=== PATIENT | male | born 1960 | race Caucasian/White ===

== ENCOUNTER 2016-12-19 13:17 | Inpatient (IN) | payer MEDICARE ==
[2016-12-19] VITALS (8 sets, daily range): BP systolic 97–138; BP diastolic 42–60
[~2016-12-19] VITALS: Ht 175.3 cm; Wt 136.0 kg
[~2016-12-19 13:17] MED LIST: ACTOS15 MG OR; AMARYL4 MG OR; AMARYL4 MG PO; AMPICILLIN500 MG OR; ASPIRIN325 MG OR; ATENOLOL50 MG OR; B COMPLE2 PO; B COMPLEX OR; BACTRIM DS1 TAB OR; BACTRIM DS1 TAB PO; BUMETANIDE1 MG PO; CEPHALEXIN500 MG PO; CHELATED K99 MG PO; CIPRO XR500 MG PO; CIPRO500 MG OR; CIPRO500 MG PO; CIPROFLOXACN500 MG PO; CLINDAMYCIN300 M1 PO; COUMADIN7.5 MG PO; DIGOX0.25 MG PO; DILAUDID2 MG PO; DOXAZOSIN8 MG PO; DOXYCYC MONO100 M1 PO; ENALAPRIL10 MG PO; ENALAPRIL2.5 MG PO; FISH OIL1000 MG OR; FISH OIL1000 MG PO; FISH OIL1200 M1 OR; FLOMAX0.4 M1 OR; FLOMAX0.4 M1 PO; FUROSEMIDE40 MG PO; GLIMEPIRIDE2 MG PO; GLUCOPHAGE500 MG PO; GREEN OR; HYDROCHLOROT12.5 M1 PO; HYDROCHLOROT12.5 MG OR; HYDROCHLOROT12.5 MG PO; HYDROCHLOROT25 MG OR; HYDROCO/APAP1 TA9 PO; IBUPROFEN200 MG PO; KEFLEX500 M1 PO; KEFLEX500 MG PO; KLOR-CON 1010 ME1 PO; KLOR-CON M2020 MEQ PO; LANTUS100 MG/ML SC; LASIX 40 MG40 MG/TAB PO; LEVAQUIN750 MG PO; LEVEMIR FL100 UNIT/M SC; LEVEMIR FLEXPEN SC; LEVEMIR1000 UNITS SC; LEVOTHYROXIN50 MCG PO; LEVOTHYROXIN75 MCG PO; LISINOP/HCTZ1 TA2 OR; LISINOP/HCTZ1 TAB PO; LISINOPRIL10 MG PO; LOPRESSOR 550 MG/TAB PO; LORTAB 10-325 M1 TAB PO; METFORMIN1000 MG OR; METFORMIN500 MG PO; METOPROLOL TAR100 MG PO; NOVOLOG FLEXPEN SC; NOVOLOG MIX100 U/ML SC; NOVOLOG100 IU/1 M SC; NYSTATIN TOP; PHILLIPS COLON HEALT PO; POTASSI XX; POTASSIUM CHLO10 MEQ PO; POTASSIUM99 MG OR; POTASSIUM99 MG PO; ROBITUSSIN AC10 ML PO; SAW PALMETTO160 MG OR; SAW PALMETTO450 MG OR; SEPTRA DS1 TAB OR; SIMVASTATIN10 MG PO; SIMVASTATIN20 MG PO; SYNTHROID OR; TAM75CAP OR; TAMSULOSIN0.4 MG PO; TENORMIN OR; TORSEMIDE20 M1 PO; ULTRAM50 MG OR; UNKNOWN MED; VICTOZA18 MG/3 ML SC; Vitamin B12 PO; WARFARIN3 MG PO; WARFARIN4 MG PO; ZESTRIL/PRINIV2.5 MG PO; ZOCOR20 MG OR; ZPAK PO; [UNRECOGNIZED DRUG - OTHER] OR; [UNRECOGNIZED DRUG - OTHER] PO
[2016-12-19 15:19] LABS: URINE BILIRUBIN - DIPSTICK NEGATIVE (NEGATIVE); URINE BLOOD DIPSTICK LARGE (NEGATIVE); URINE CLARITY CLEAR; URINE COLOR YELLOW; URINE GLUCOSE - DIPSTICK 100 mg/dL (NEGATIVE); URINE KETONE NEGATIVE (NEGATIVE); URINE LEUK ESTERASE NEGATIVE (NEGATIVE); URINE NITRITE - DIPSTICK NEGATIVE (Negative); URINE PROTEIN - DIPSTICK NEGATIVE (NEG-TRACE); URINE SPECIFIC GRAVITY 1.015; URINE UROBILINOGEN - DIPSTICK 0.2 E.U./dL (0.2)
[2016-12-19 15:24] LABS: HEMATOCRIT 38.1 % (39.0-50.0); HEMOGLOBIN 10.6 g/dl (14.0-18.0); IMMATURE GRANULOCYTES 0.8 % (0.0-1.0); MEAN CELL VOLUME 94.1 fL CALC (80.0-100.0); MEAN CORPUSCULAR HGB 26.2 pG CALC (26.0-32.0); MEAN CORPUSCULAR HGB CONC 27.8 g/L CALC (32.0-36.0); NEUT# 7.16 thou/uL (1.82-7.42); RED BLOOD COUNT 4.05 mill/uL (4.70-6.10); RED CELL DISTRI WIDTH 16.5 % (11.5-15.5)
[2016-12-19 15:25] LABS: URINE RBC TNTC RBC/hpf (0-5); URINE SQUAMOUS EPITHELIAL CELL FEW EPI/hpf (0-FEW)
[2016-12-19 15:35] LABS: ALBUMIN 3.6 g/dL (3.2-5.0); ALKALINE PHOSPHATASE 118 u/l (38-126); BILIRUBIN, TOTAL 0.8 mg/dL (0.0-1.4); BUN 47 mg/dL (9-20); BUN/CREATININE RATIO 28 (12-20 (CALC)); CALCIUM 8.7 mg/dL (8.4-10.2); CHLORIDE 90 mmol/l (95-108); CREATININE 1.7 mg/dL (0.7-1.3); GFR 42 ML/MIN (>=60 (CALC)); GFR FOR AFR.AMER. 50 ML/MIN (>=60 (CALC)); GLUCOSE 241 mg/dL (75-110); POTASSIUM 4.5 mmol/l (3.5-5.1); SGOT/AST 50 u/l (17-59); SGPT/ALT 75 u/l (21-72); SODIUM 141 mmol/l (137-146); TOTAL PROTEIN 8.2 g/dL (6.3-8.2)
[2016-12-19 15:41] LABS: ANION GAP 13 (6-22 (CALC))
[2016-12-19 15:45] LABS: MYOGLOBIN 52 ng/mL (0 - 121)
[2016-12-19 15:50] LABS: CARBON DIOXIDE 43 mmol/l (22-30)
[2016-12-19] MEDS ORDERED: IMIPRAM HCL25 M1 PO (16:18)
[2016-12-20] VITALS (16 sets, daily range): BP systolic 96–147; BP diastolic 37–75
[2016-12-20 05:33] LABS: HEMATOCRIT 35.8 % (39.0-50.0); HEMOGLOBIN 10.2 g/dl (14.0-18.0); IMMATURE GRANULOCYTES 0.9 % (0.0-1.0); MEAN CORPUSCULAR HGB 26.2 pG CALC (26.0-32.0); MEAN CORPUSCULAR HGB CONC 28.5 g/L CALC (32.0-36.0); NEUT# 6.77 thou/uL (1.82-7.42); RED BLOOD COUNT 3.89 mill/uL (4.70-6.10); RED CELL DISTRI WIDTH 16.3 % (11.5-15.5)
[2016-12-20 05:49] LABS: ALBUMIN 3.1 g/dL (3.2-5.0); ALKALINE PHOSPHATASE 106 u/l (38-126); BILIRUBIN, TOTAL 0.5 mg/dL (0.0-1.4); BUN 48 mg/dL (9-20); BUN/CREATININE RATIO 36 (12-20 (CALC)); CALCIUM 8.5 mg/dL (8.4-10.2); CALCULATED LDLCHOLESTEROL 70 mg/dL (62-129 (CALC)); CHLORIDE 92 mmol/l (95-108); CREATININE 1.3 mg/dL (0.7-1.3); GFR 57 ML/MIN (>=60 (CALC)); GFR FOR AFR.AMER. > 60 ML/MIN (>=60 (CALC)); GLUCOSE 243 mg/dL (75-110); HDL CHOLESTEROL 38 mg/dL (>=40); POTASSIUM 4.7 mmol/l (3.5-5.1); SGOT/AST 26 u/l (17-59); SGPT/ALT 61 u/l (21-72); SODIUM 144 mmol/l (137-146); TOTAL CHOLESTEROL 131 mg/dl (0-199); TOTAL PROTEIN 7.2 g/dL (6.3-8.2); TOTAL TRIGLYCERIDES 115 mg/dl (30-149); VLDL CHOLESTROL 23 mg/dl (8-62 (CALC))
[2016-12-20 05:55] LABS: ANION GAP 14 (6-22 (CALC))
[2016-12-20 06:47] LABS: CARBON DIOXIDE 43 mmol/l (22-30)
[2016-12-21] VITALS (10 sets, daily range): BP systolic 126–178; BP diastolic 53–84
[2016-12-21 06:55] LABS: ALKALINE PHOSPHATASE 94 u/l (38-126); BILIRUBIN, TOTAL 0.5 mg/dL (0.0-1.4); BUN 47 mg/dL (9-20); BUN/CREATININE RATIO 40 (12-20 (CALC)); CALCIUM 8.3 mg/dL (8.4-10.2); CHLORIDE 94 mmol/l (95-108); CREATININE 1.2 mg/dL (0.7-1.3); GFR > 60 ML/MIN (>=60 (CALC)); GFR FOR AFR.AMER. > 60 ML/MIN (>=60 (CALC)); GLUCOSE 136 mg/dL (75-110); POTASSIUM 4.2 mmol/l (3.5-5.1); SGOT/AST 21 u/l (17-59); SGPT/ALT 49 u/l (21-72); SODIUM 143 mmol/l (137-146)
[2016-12-21 07:01] LABS: ANION GAP 11 (6-22 (CALC))
[2016-12-21 07:09] LABS: CARBON DIOXIDE 42 mmol/l (22-30)
[2016-12-21 07:09] LABS: HEMATOCRIT 36.8 % (39.0-50.0); HEMOGLOBIN 10.4 g/dl (14.0-18.0); IMMATURE GRANULOCYTES 0.4 % (0.0-1.0); MEAN CELL VOLUME 93.2 fL CALC (80.0-100.0); MEAN CORPUSCULAR HGB 26.3 pG CALC (26.0-32.0); MEAN CORPUSCULAR HGB CONC 28.3 g/L CALC (32.0-36.0); NEUT# 9.39 thou/uL (1.82-7.42); RED BLOOD COUNT 3.95 mill/uL (4.70-6.10); RED CELL DISTRI WIDTH 16.5 % (11.5-15.5)
== END 2016-12-21 10:00 | disposition home or self-care (01) | DRG 189 ==
LOC: ENPENDDIS → ED 13:17 → ED-I 16:24 → ED 16:27 → ICU 16:28
PROVIDERS: Emergency Medicine; ADMIT Internal Medicine Geriatric Medicine; ATTEND Internal Medicine Geriatric Medicine
PROC: 5A0935Z Assistance with Respiratory Ventilation, Less than 24 Consecutive Hours (ICD-10-PCS; principal; 2016-12-19)
DX: J96.01 Acute respiratory failure with hypoxia (principal); I11.0 Hypertensive heart disease with heart failure; I50.22 Chronic systolic (congestive) heart failure; Z99.81 Dependence on supplemental oxygen; Z68.44 Body mass index [BMI] 60.0-69.9, adult; J96.02 Acute respiratory failure with hypercapnia; E66.01 Morbid (severe) obesity due to excess calories; E03.9 Hypothyroidism, unspecified; I25.10 Atherosclerotic heart disease of native coronary artery without angina pectoris; M19.90 Unspecified osteoarthritis, unspecified site; N13.9 Obstructive and reflux uropathy, unspecified; E11.9 Type 2 diabetes mellitus without complications; G47.30 Sleep apnea, unspecified; Z91.19 Patient's noncompliance with other medical treatment and regimen
CPT/HCPCS: J1650

== ENCOUNTER 2016-12-23 11:10 | Emergency (ER) | payer MEDICARE ==
[~2016-12-23] VITALS: Ht 175.3 cm; Wt 136.4 kg
[~2016-12-23 11:10] MED LIST changes: +IMIPRAM HCL25 M1 PO
[2016-12-23 12:31] LABS: HEMATOCRIT 36.4 % (39.0-50.0); HEMOGLOBIN 10.2 g/dl (14.0-18.0); IMMATURE GRANULOCYTES 0.8 % (0.0-1.0); MEAN CELL VOLUME 94.5 fL CALC (80.0-100.0); MEAN CORPUSCULAR HGB 26.5 pG CALC (26.0-32.0); NEUT# 7.99 thou/uL (1.82-7.42); RED BLOOD COUNT 3.85 mill/uL (4.70-6.10); RED CELL DISTRI WIDTH 16.3 % (11.5-15.5)
[2016-12-23 12:41] LABS: ALBUMIN 3.5 g/dL (3.2-5.0); ALKALINE PHOSPHATASE 89 u/l (38-126); BILIRUBIN, TOTAL 0.7 mg/dL (0.0-1.4); BUN 41 mg/dL (9-20); BUN/CREATININE RATIO 37 (12-20 (CALC)); CALCIUM 8.4 mg/dL (8.4-10.2); CHLORIDE 90 mmol/l (95-108); CREATININE 1.1 mg/dL (0.7-1.3); GFR > 60 ML/MIN (>=60 (CALC)); GFR FOR AFR.AMER. > 60 ML/MIN (>=60 (CALC)); GLUCOSE 342 mg/dL (75-110); MAGNESIUM 2.4 mg/dL (1.6-2.3); SGOT/AST 62 u/l (17-59); SGPT/ALT 61 u/l (21-72); SODIUM 140 mmol/l (137-146); TOTAL PROTEIN 7.9 g/dL (6.3-8.2)
[2016-12-23 12:52] LABS: ANION GAP 10 (6-22 (CALC)); POTASSIUM 5.4 mmol/l (3.5-5.1)
[2016-12-23 12:53] LABS: MYOGLOBIN 44 ng/mL (0 - 121)
[2016-12-23 12:54] LABS: CARBON DIOXIDE 45 mmol/l (22-30)
[2016-12-23 13:28] VITALS: BP 135/76
== END 2016-12-23 13:35 | disposition home or self-care (01) ==
LOC: ED 11:10
PROVIDERS: Emergency Medicine
DX: F41.9 Anxiety disorder, unspecified (principal); I10 Essential (primary) hypertension; I48.91 Unspecified atrial fibrillation; R42 Dizziness and giddiness

== ENCOUNTER 2016-12-25 16:31 | Emergency (ER) | payer MEDICARE ==
[~2016-12-25] VITALS: Ht 175.3 cm; Wt 90.0 kg
[2016-12-25 17:14] VITALS: BP 145/72
== END 2016-12-25 17:40 | disposition home or self-care (01) ==
LOC: ED 16:31
DX: F32.9 Major depressive disorder, single episode, unspecified (principal)

== ENCOUNTER 2016-12-28 14:13 | Emergency (ER) | payer MEDICARE ==
[~2016-12-28] VITALS: Ht 175.3 cm; Wt 181.8 kg
[2016-12-28 15:42] LABS: HEMATOCRIT 36.7 % (39.0-50.0); HEMOGLOBIN 10.4 g/dl (14.0-18.0); IMMATURE GRANULOCYTES 0.5 % (0.0-1.0); MEAN CELL VOLUME 92.4 fL CALC (80.0-100.0); MEAN CORPUSCULAR HGB 26.2 pG CALC (26.0-32.0); MEAN CORPUSCULAR HGB CONC 28.3 g/L CALC (32.0-36.0); NEUT# 7.63 thou/uL (1.82-7.42); RED BLOOD COUNT 3.97 mill/uL (4.70-6.10); RED CELL DISTRI WIDTH 16.2 % (11.5-15.5)
[2016-12-28 15:56] LABS: PROTHROMBIN TIME 11.3 SECONDS (9.0-12.5)
[2016-12-28 15:59] LABS: ALBUMIN 3.7 g/dL (3.2-5.0); ALKALINE PHOSPHATASE 95 u/l (38-126); BILIRUBIN, TOTAL 0.6 mg/dL (0.0-1.4); BUN 37 mg/dL (9-20); BUN/CREATININE RATIO 30 (12-20 (CALC)); CALCIUM 8.9 mg/dL (8.4-10.2); CHLORIDE 86 mmol/l (95-108); CREATININE 1.2 mg/dL (0.7-1.3); GFR > 60 ML/MIN (>=60 (CALC)); GFR FOR AFR.AMER. > 60 ML/MIN (>=60 (CALC)); GLUCOSE 199 mg/dL (75-110); POTASSIUM 4.3 mmol/l (3.5-5.1); SGOT/AST 22 u/l (17-59); SGPT/ALT 56 u/l (21-72); SODIUM 140 mmol/l (137-146); TOTAL PROTEIN 7.9 g/dL (6.3-8.2)
[2016-12-28 16:12] LABS: MYOGLOBIN 54 ng/mL (0 - 121)
[2016-12-28 16:46] LABS: ANION GAP 11 (6-22 (CALC)); CARBON DIOXIDE 47 mmol/l (22-30); TSH, 3RD GENERATION 2.13 uIU/mL (0.47 - 4.68)
[2016-12-28 20:45] LABS: TSH, 3RD GENERATION 2.2 uIU/mL (0.47 - 4.68)
[2016-12-28 21:14] VITALS: BP 130/70
== END 2016-12-28 21:15 | disposition short-term general hospital (02) ==
LOC: ED 14:13 → ED-I 14:41 → ED 21:15
PROVIDERS: Emergency Medicine
PROC: 5A09357 Assistance with Respiratory Ventilation, Less than 24 Consecutive Hours, Continuous Positive Airway Pressure (ICD-10-PCS; principal; 2016-12-28)
DX: R06.89 Other abnormalities of breathing (principal); I50.9 Heart failure, unspecified; I95.9 Hypotension, unspecified; L30.8 Other specified dermatitis; J44.9 Chronic obstructive pulmonary disease, unspecified; G47.30 Sleep apnea, unspecified; R60.9 Edema, unspecified; I10 Essential (primary) hypertension; I48.91 Unspecified atrial fibrillation; B95.7 Other staphylococcus as the cause of diseases classified elsewhere
CPT/HCPCS: J1650

== ENCOUNTER 2017-02-14 10:50 | Emergency (ER) | payer MEDICARE ==
[~2017-02-14] VITALS: Ht 175.3 cm; Wt 154.5 kg
[2017-02-14 13:45] VITALS: BP 132/80
== END 2017-02-14 13:50 | disposition home or self-care (01) ==
LOC: ED 10:50
DX: R39.15 Urgency of urination (principal); I10 Essential (primary) hypertension; E78.5 Hyperlipidemia, unspecified; E11.9 Type 2 diabetes mellitus without complications; I48.91 Unspecified atrial fibrillation; I25.119 Atherosclerotic heart disease of native coronary artery with unspecified angina pectoris; E03.9 Hypothyroidism, unspecified; E66.01 Morbid (severe) obesity due to excess calories

== ENCOUNTER 2017-03-30 07:49 | Observation (INO) | payer MEDICARE ==
[~2017-03-30 07:49] MED LIST changes: +FISH OIL1000 M2 PO; +METFORMIN HCL1000 MG PO; +METOPROL TAR100 MG PO; +NOVOLIN R100 UNIT/M
[2017-03-30 12:45] VITALS: BP 122/76
[2017-03-30 13:00] VITALS: BP 124/72
[2017-03-30 13:15] VITALS: BP 130/70
[2017-03-30 13:30] VITALS: BP 136/70
[2017-03-30 14:00] VITALS: BP 130/73
== END 2017-03-30 15:27 | disposition home or self-care (01) ==
LOC: ORM 07:49 → MS2 12:00
PROVIDERS: ADMIT Urology; ATTEND Urology
PROC: 0TJB8ZZ Inspection of Bladder, Via Natural or Artificial Opening Endoscopic (ICD-10-PCS; principal; 2017-03-30)
DX: N40.1 Benign prostatic hyperplasia with lower urinary tract symptoms (principal); N39.498 Other specified urinary incontinence; R33.8 Other retention of urine; R39.12 Poor urinary stream; N35.9 Urethral stricture, unspecified; I10 Essential (primary) hypertension; R09.89 Other specified symptoms and signs involving the circulatory and respiratory systems; E66.01 Morbid (severe) obesity due to excess calories; E87.70 Fluid overload, unspecified; J44.9 Chronic obstructive pulmonary disease, unspecified; E11.9 Type 2 diabetes mellitus without complications; E78.5 Hyperlipidemia, unspecified; E03.9 Hypothyroidism, unspecified; Z79.84 Long term (current) use of oral hypoglycemic drugs; Z79.4 Long term (current) use of insulin; Z53.09 Procedure and treatment not carried out because of other contraindication

== ENCOUNTER 2017-04-11 10:46 | Emergency (ER) | payer MEDICARE | END 2017-04-11 11:05 | disposition left against medical advice (07) | LOC: ED 10:46 → LWOBS 11:05 → ED 11:05 | DX: Z91.19 Patient's noncompliance with other medical treatment and regimen (principal) ==

== ENCOUNTER 2017-04-25 07:29 | Emergency (ER) | payer MEDICARE ==
[~2017-04-25] VITALS: Ht 175.3 cm; Wt 160.0 kg
[2017-04-25] MEDS ORDERED: MACROBID100 MG PO (08:02)
[2017-04-25 08:13] VITALS: BP 115/60
[2017-04-25 08:23] LABS: URINE BILIRUBIN - DIPSTICK NEGATIVE (NEGATIVE); URINE BLOOD DIPSTICK LARGE (NEGATIVE); URINE COLOR YELLOW; URINE GLUCOSE - DIPSTICK NEGATIVE (NEGATIVE); URINE PROTEIN - DIPSTICK TRACE mg/dL (NEG-TRACE); URINE SPECIFIC GRAVITY 1.015; URINE UROBILINOGEN - DIPSTICK 0.2 E.U./dL (0.2)
[2017-04-25 08:24] LABS: URINE NITRITE - DIPSTICK POSITIVE (Negative)
[2017-04-25 08:27] LABS: URINE KETONE Negative (NEGATIVE); URINE WBC 20-50 WBC/hpf (0-5)
[2017-04-25 08:28] LABS: URINE BACTERIA FEW hpf; URINE CLARITY CLOUDY; URINE EPITHELIAL CELLS RARE EPI/hpf (0-FEW); URINE LEUK ESTERASE LARGE (NEGATIVE)
== END 2017-04-25 08:36 | disposition home or self-care (01) ==
LOC: ED 07:29
PROVIDERS: Emergency Medicine
PROC: 0T2BX0Z Change Drainage Device in Bladder, External Approach (ICD-10-PCS; principal; 2017-04-25)
DX: T83.098A Other mechanical complication of other urinary catheter, initial encounter (principal); I10 Essential (primary) hypertension; E11.9 Type 2 diabetes mellitus without complications; J44.9 Chronic obstructive pulmonary disease, unspecified; B96.20 Unspecified Escherichia coli [E. coli] as the cause of diseases classified elsewhere; E78.00 Pure hypercholesterolemia, unspecified; N40.0 Benign prostatic hyperplasia without lower urinary tract symptoms; Y84.6 Urinary catheterization as the cause of abnormal reaction of the patient, or of later complication, without mention of misadventure at the time of the procedure

== ENCOUNTER 2017-06-09 08:54 | Emergency (ER) | payer MEDICARE ==
[~2017-06-09] VITALS: Ht 175.3 cm; Wt 181.8 kg
[~2017-06-09 08:54] MED LIST changes: +MACROBID100 MG PO
[2017-06-09] MEDS ORDERED: MACROBID100 MG PO (09:33)
[2017-06-09 09:56] LABS: URINE BILIRUBIN - DIPSTICK NEGATIVE (NEGATIVE); URINE BLOOD DIPSTICK LARGE (NEGATIVE); URINE COLOR YELLOW; URINE GLUCOSE - DIPSTICK 250 mg/dL (NEGATIVE); URINE KETONE NEGATIVE (NEGATIVE); URINE NITRITE - DIPSTICK NEGATIVE (Negative); URINE PH 6.5 (4.5-8.0); URINE PROTEIN - DIPSTICK NEGATIVE (NEG-TRACE); URINE UROBILINOGEN - DIPSTICK 0.2 E.U./dL (0.2)
[2017-06-09 10:01] LABS: URINE CLARITY HAZY; URINE LEUK ESTERASE SMALL (NEGATIVE)
[2017-06-09 10:11] VITALS: BP 153/74
== END 2017-06-09 10:11 | disposition home or self-care (01) ==
LOC: ED 08:54
PROVIDERS: Emergency Medicine
PROC: 0T2BX0Z Change Drainage Device in Bladder, External Approach (ICD-10-PCS; principal; 2017-06-09)
DX: T83.098A Other mechanical complication of other urinary catheter, initial encounter (principal); N39.0 Urinary tract infection, site not specified; B96.89 Other specified bacterial agents as the cause of diseases classified elsewhere

== ENCOUNTER 2017-07-11 09:03 | Emergency (ER) | payer MEDICARE ==
[~2017-07-11] VITALS: Ht 175.3 cm; Wt 140.0 kg
[2017-07-11] MEDS ORDERED: KEFLEX500 MG PO (10:23)
== END 2017-07-11 10:53 | disposition home or self-care (01) ==
LOC: ED 09:03
PROC: 0T2BX0Z Change Drainage Device in Bladder, External Approach (ICD-10-PCS; principal; 2017-07-11)
DX: Z46.6 Encounter for fitting and adjustment of urinary device (principal)

== ENCOUNTER 2017-07-20 12:39 | Emergency (ER) | payer MEDICARE ==
[~2017-07-20] VITALS: Ht 175.3 cm; Wt 136.4 kg
[2017-07-20 13:32] VITALS: BP 125/69
== END 2017-07-20 13:46 | disposition home or self-care (01) ==
LOC: ED 12:39
PROC: 0T9B70Z Drainage of Bladder with Drainage Device, Via Natural or Artificial Opening (ICD-10-PCS; principal; 2017-07-20)
DX: T83.028A Displacement of other urinary catheter, initial encounter (principal); E11.9 Type 2 diabetes mellitus without complications; J44.9 Chronic obstructive pulmonary disease, unspecified; I10 Essential (primary) hypertension; N40.0 Benign prostatic hyperplasia without lower urinary tract symptoms; E78.00 Pure hypercholesterolemia, unspecified; E66.01 Morbid (severe) obesity due to excess calories; Y84.6 Urinary catheterization as the cause of abnormal reaction of the patient, or of later complication, without mention of misadventure at the time of the procedure

== ENCOUNTER 2017-07-24 11:33 | Emergency (ER) | payer MEDICARE ==
[~2017-07-24] VITALS: Ht 175.3 cm; Wt 172.7 kg
[2017-07-24 12:23] VITALS: BP 126/68
== END 2017-07-24 12:39 | disposition home or self-care (01) ==
LOC: ED 11:33
PROC: 0T9B70Z Drainage of Bladder with Drainage Device, Via Natural or Artificial Opening (ICD-10-PCS; principal; 2017-07-24)
DX: T83.028A Displacement of other urinary catheter, initial encounter (principal); E11.9 Type 2 diabetes mellitus without complications; J44.9 Chronic obstructive pulmonary disease, unspecified; I10 Essential (primary) hypertension; N40.0 Benign prostatic hyperplasia without lower urinary tract symptoms; E66.01 Morbid (severe) obesity due to excess calories; Y84.6 Urinary catheterization as the cause of abnormal reaction of the patient, or of later complication, without mention of misadventure at the time of the procedure

== ENCOUNTER 2017-08-09 09:10 | Emergency (ER) | payer MEDICARE ==
[~2017-08-09] VITALS: Ht 175.3 cm; Wt 159.0 kg
[2017-08-09 10:17] LABS: HEMATOCRIT 34.1 % (39.0-50.0); HEMOGLOBIN 10.2 g/dl (14.0-18.0); MEAN CELL VOLUME 93.4 fL CALC (80.0-100.0); MEAN CORPUSCULAR HGB 27.9 pG CALC (26.0-32.0); MEAN CORPUSCULAR HGB CONC 29.9 g/L CALC (32.0-36.0); NEUT# 6.33 thou/uL (1.82-7.42); RED BLOOD COUNT 3.65 mill/uL (4.70-6.10)
[2017-08-09 10:19] LABS: URINE BILIRUBIN - DIPSTICK NEGATIVE (NEGATIVE); URINE BLOOD DIPSTICK LARGE (NEGATIVE); URINE COLOR YELLOW; URINE GLUCOSE - DIPSTICK 500 mg/dL (NEGATIVE); URINE KETONE NEGATIVE (NEGATIVE); URINE LEUK ESTERASE MODERATE (NEGATIVE); URINE NITRITE - DIPSTICK NEGATIVE (Negative); URINE PROTEIN - DIPSTICK 100 mg/dL (NEG-TRACE); URINE UROBILINOGEN - DIPSTICK 0.2 E.U./dL (0.2)
[2017-08-09 10:20] LABS: URINE CLARITY SLIGHT CLOUDY
[2017-08-09 10:30] LABS: URINE BACTERIA MODERATE hpf
[2017-08-09 10:31] LABS: URINE WBC 20-50 WBC/hpf (0-5)
[2017-08-09 10:31] LABS: ALBUMIN 3.3 g/dL (3.2-5.0); ALKALINE PHOSPHATASE 84 u/l (38-126); ANION GAP 10 (6-22 (CALC)); BILIRUBIN, TOTAL 0.6 mg/dL (0.0-1.4); BUN 19 mg/dL (9-20); BUN/CREATININE RATIO 21 (12-20 (CALC)); CALCIUM 8.6 mg/dL (8.4-10.2); CARBON DIOXIDE 37 mmol/l (22-30); CHLORIDE 95 mmol/l (95-108); CREATININE 0.9 mg/dL (0.7-1.3); GFR > 60 ML/MIN (>=60 (CALC)); GFR FOR AFR.AMER. > 60 ML/MIN (>=60 (CALC)); GLUCOSE 273 mg/dL (75-110); POTASSIUM 4.2 mmol/l (3.5-5.1); SGOT/AST 27 u/l (17-59); SGPT/ALT 46 u/l (21-72); SODIUM 139 mmol/l (137-146); TOTAL PROTEIN 6.8 g/dL (6.3-8.2)
[2017-08-09 10:33] LABS: URINE COARSE GRANULAR CAST RARE lpf
[2017-08-09 10:34] LABS: URINE WHITE BLOOD CELL CAST RARE lpf
[2017-08-09] MEDS ORDERED: MACROBID100 MG PO (10:47)
[2017-08-09 11:08] VITALS: BP 185/100
== END 2017-08-09 11:08 | disposition home or self-care (01) ==
LOC: ED 09:10
PROVIDERS: Emergency Medicine
DX: N39.0 Urinary tract infection, site not specified (principal); R53.1 Weakness; R42 Dizziness and giddiness; I10 Essential (primary) hypertension; B96.89 Other specified bacterial agents as the cause of diseases classified elsewhere

== ENCOUNTER 2017-08-22 08:13 | Emergency (ER) | payer MEDICARE ==
[~2017-08-22] VITALS: Ht 175.3 cm; Wt 147.7 kg
[2017-08-22 09:31] LABS: INFLUENZA A NONE DETECTED (NONE DETECT); INFLUENZA B NONE DETECTED (NONE DETECT)
[2017-08-22 09:57] LABS: HEMATOCRIT 37.8 % (39.0-50.0); IMMATURE GRANULOCYTES 0.5 % (0.0-1.0); MEAN CELL VOLUME 95.9 fL CALC (80.0-100.0); MEAN CORPUSCULAR HGB 27.9 pG CALC (26.0-32.0); MEAN CORPUSCULAR HGB CONC 29.1 g/L CALC (32.0-36.0); NEUT# 4.55 thou/uL (1.82-7.42); RED BLOOD COUNT 3.94 mill/uL (4.70-6.10); RED CELL DISTRI WIDTH 16.4 % (11.5-15.5)
[2017-08-22 10:24] LABS: ALBUMIN 4.1 g/dL (3.2-5.0); ALKALINE PHOSPHATASE 104 u/l (38-126); ANION GAP 14 (6-22 (CALC)); BILIRUBIN, TOTAL 0.8 mg/dL (0.0-1.4); BUN 25 mg/dL (9-20); BUN/CREATININE RATIO 22 (12-20 (CALC)); CALCIUM 8.9 mg/dL (8.4-10.2); CARBON DIOXIDE 35 mmol/l (22-30); CHLORIDE 94 mmol/l (95-108); CREATININE 1.1 mg/dL (0.7-1.3); GFR > 60 ML/MIN (>=60 (CALC)); GFR FOR AFR.AMER. > 60 ML/MIN (>=60 (CALC)); GLUCOSE 309 mg/dL (75-110); POTASSIUM 4.6 mmol/l (3.5-5.1); SGOT/AST 31 u/l (17-59); SGPT/ALT 44 u/l (21-72); SODIUM 138 mmol/l (137-146); TOTAL PROTEIN 8.7 g/dL (6.3-8.2)
[2017-08-22] MEDS ORDERED: SIMVASTATIN20 MG PO (10:30)
[2017-08-22] MEDS ORDERED: [UNRECOGNIZED DRUG - OTHER] PO (10:30)
[2017-08-22] MEDS ORDERED: NOVOLOG MIX100 U/ML SC (10:31)
[2017-08-22] MEDS ORDERED: LEVOTHYROXIN75 MCG PO (10:31)
[2017-08-22] MEDS ORDERED: BL POTASSIUM99 MG PO (10:32)
[2017-08-22] MEDS ORDERED: ENALAPRIL2.5 MG PO (10:33)
[2017-08-22] MEDS ORDERED: IMIPRAM HCL25 M1 PO (10:33)
[2017-08-22] MEDS ORDERED: METFORMIN500 MG PO (10:34)
[2017-08-22] MEDS ORDERED: NOVOLIN R RELION SC (10:35)
[2017-08-22] MEDS ORDERED: TOPROL XL PO (10:35)
[2017-08-22] MEDS ORDERED: FISH OIL1000 MG PO (10:36)
[2017-08-22] MEDS ORDERED: TORSEMIDE20 M1 PO (10:36)
[2017-08-22] MEDS ORDERED: HYDROCODONE/ACE1 T10 PO (10:37)
[2017-08-22] MEDS ORDERED: LASIX 40 MG40 MG/TAB PO (10:38)
[2017-08-22] MEDS ORDERED: TESSALON PER100 MG PO (10:47)
[2017-08-22] MEDS ORDERED: LEVAQUIN750 MG PO (10:47)
[2017-08-22] MEDS ORDERED: PREDNISONE50 MG PO (10:47)
[2017-08-22 11:05] VITALS: BP 158/86
== END 2017-08-22 11:10 | disposition home or self-care (01) ==
LOC: ED 08:13
PROVIDERS: Emergency Medicine
DX: J40 Bronchitis, not specified as acute or chronic (principal); R05 Cough; R09.81 Nasal congestion; R09.89 Other specified symptoms and signs involving the circulatory and respiratory systems; I10 Essential (primary) hypertension; I51.7 Cardiomegaly

== ENCOUNTER 2017-08-23 12:58 | Emergency (ER) | payer MEDICARE ==
[~2017-08-23] VITALS: Ht 175.3 cm; Wt 159.0 kg
[~2017-08-23 12:58] MED LIST changes: +BL POTASSIUM99 MG PO; +HYDROCODONE/ACE1 T10 PO; +NOVOLIN R RELION SC; +PREDNISONE50 MG PO; +TESSALON PER100 MG PO; +TOPROL XL PO
[2017-08-23 13:35] VITALS: BP 167/79
== END 2017-08-23 13:35 | disposition home or self-care (01) ==
LOC: ED 12:58
PROC: 0T2BX0Z Change Drainage Device in Bladder, External Approach (ICD-10-PCS; principal; 2017-08-23)
DX: T83.038A Leakage of other urinary catheter, initial encounter (principal)

== ENCOUNTER 2017-08-24 18:03 | Emergency (ER) | payer MEDICARE ==
[~2017-08-24] VITALS: Ht 175.3 cm; Wt 150.0 kg
[2017-08-24 18:53] VITALS: BP 104/65
== END 2017-08-24 19:06 | disposition home or self-care (01) ==
LOC: ED 18:03
DX: T83.038A Leakage of other urinary catheter, initial encounter (principal); Y92.009 Unspecified place in unspecified non-institutional (private) residence as the place of occurrence of the external cause

== ENCOUNTER 2017-09-11 12:55 | Emergency (ER) | payer MEDICARE ==
[~2017-09-11] VITALS: Ht 175.3 cm; Wt 120.0 kg
== END 2017-09-11 13:59 | disposition home or self-care (01) ==
LOC: ED 12:55
PROC: 0T2BX0Z Change Drainage Device in Bladder, External Approach (ICD-10-PCS; principal; 2017-09-11)
DX: T83.028A Displacement of other urinary catheter, initial encounter (principal)

== ENCOUNTER 2017-09-20 11:49 | Emergency (ER) | payer MEDICARE ==
[~2017-09-20] VITALS: Ht 175.3 cm; Wt 143.0 kg
[2017-09-20] MEDS ORDERED: CEPHALEXIN500 MG PO (12:42)
[2017-09-20] MEDS ORDERED: CIPROFLOXACN500 MG PO (12:42)
[2017-09-20 12:48] VITALS: BP 149/61
== END 2017-09-20 13:05 | disposition home or self-care (01) ==
LOC: ED 11:49
DX: T83.518A Infection and inflammatory reaction due to other urinary catheter, initial encounter (principal); N39.0 Urinary tract infection, site not specified; B95.62 Methicillin resistant Staphylococcus aureus infection as the cause of diseases classified elsewhere

== ENCOUNTER 2017-10-03 10:00 | Emergency (ER) | payer MEDICARE ==
[~2017-10-03] VITALS: Ht 175.3 cm; Wt 161.3 kg
[2017-10-03 12:14] VITALS: BP 147/68
== END 2017-10-03 12:27 | disposition home or self-care (01) ==
LOC: ED 10:00
DX: T83.098A Other mechanical complication of other urinary catheter, initial encounter (principal); I10 Essential (primary) hypertension; E11.9 Type 2 diabetes mellitus without complications; E66.9 Obesity, unspecified; Y84.6 Urinary catheterization as the cause of abnormal reaction of the patient, or of later complication, without mention of misadventure at the time of the procedure

== ENCOUNTER 2017-10-09 08:20 | Emergency (ER) | payer MEDICARE ==
[~2017-10-09] VITALS: Ht 175.3 cm; Wt 165.0 kg
[2017-10-09 08:47] VITALS: BP 128/79
== END 2017-10-09 08:47 | disposition home or self-care (01) ==
LOC: ED 08:20
PROC: 0T2BX0Z Change Drainage Device in Bladder, External Approach (ICD-10-PCS; principal; 2017-10-09)
DX: T83.028A Displacement of other urinary catheter, initial encounter (principal)

== ENCOUNTER 2017-10-13 14:13 | Emergency (ER) | payer MEDICARE ==
[~2017-10-13] VITALS: Ht 175.3 cm; Wt 125.0 kg
== END 2017-10-13 15:53 | disposition home or self-care (01) ==
LOC: ED 14:13
PROC: 0T2BX0Z Change Drainage Device in Bladder, External Approach (ICD-10-PCS; principal; 2017-10-13)
DX: T83.031A Leakage of indwelling urethral catheter, initial encounter (principal); E66.9 Obesity, unspecified; E11.9 Type 2 diabetes mellitus without complications; I10 Essential (primary) hypertension; Y84.6 Urinary catheterization as the cause of abnormal reaction of the patient, or of later complication, without mention of misadventure at the time of the procedure

== ENCOUNTER 2017-10-17 15:31 | Emergency (ER) | payer MEDICARE ==
[~2017-10-17] VITALS: Ht 175.3 cm; Wt 156.8 kg
[2017-10-17 16:43] LABS: HEMATOCRIT 34.2 % (39.0-50.0); HEMOGLOBIN 9.9 g/dl (14.0-18.0); IMMATURE GRANULOCYTES 0.4 % (0.0-1.0); MEAN CELL VOLUME 92.4 fL CALC (80.0-100.0); MEAN CORPUSCULAR HGB 26.8 pG CALC (26.0-32.0); MEAN CORPUSCULAR HGB CONC 28.9 g/L CALC (32.0-36.0); NEUT# 7.8 thou/uL (1.82-7.42); RED BLOOD COUNT 3.7 mill/uL (4.70-6.10); RED CELL DISTRI WIDTH 16.2 % (11.5-15.5)
[2017-10-17 16:52] LABS: ALBUMIN 3.8 g/dL (3.2-5.0); ALKALINE PHOSPHATASE 94 u/l (38-126); ANION GAP 15 (6-22 (CALC)); BILIRUBIN, TOTAL 0.4 mg/dL (0.0-1.4); BUN 28 mg/dL (9-20); BUN/CREATININE RATIO 24 (12-20 (CALC)); CALCIUM 9.6 mg/dL (8.4-10.2); CARBON DIOXIDE 36 mmol/l (22-30); CHLORIDE 93 mmol/l (95-108); CREATININE 1.2 mg/dL (0.7-1.3); GFR > 60 ML/MIN (>=60 (CALC)); GFR FOR AFR.AMER. > 60 ML/MIN (>=60 (CALC)); GLUCOSE 163 mg/dL (75-110); POTASSIUM 4.3 mmol/l (3.5-5.1); SGOT/AST 36 u/l (17-59); SGPT/ALT 25 u/l (21-72); SODIUM 139 mmol/l (137-146); TOTAL PROTEIN 7.6 g/dL (6.3-8.2)
[2017-10-17 17:55] VITALS: BP 140/72
== END 2017-10-17 17:55 | disposition home or self-care (01) ==
LOC: ED 15:31
PROVIDERS: Emergency Medicine
DX: R42 Dizziness and giddiness (principal); R20.2 Paresthesia of skin; R53.1 Weakness; I10 Essential (primary) hypertension

== ENCOUNTER 2017-11-11 04:13 | Emergency (ER) | payer MEDICARE ==
[~2017-11-11] VITALS: Ht 175.3 cm; Wt 150.0 kg
[2017-11-11 05:04] VITALS: BP 148/74
== END 2017-11-11 04:55 | disposition home or self-care (01) ==
LOC: ED 04:13
DX: T83.028A Displacement of other urinary catheter, initial encounter (principal); Y92.009 Unspecified place in unspecified non-institutional (private) residence as the place of occurrence of the external cause

== ENCOUNTER 2017-11-14 20:07 | Emergency (ER) | payer MEDICARE ==
[~2017-11-14] VITALS: Ht 175.3 cm; Wt 209.0 kg
[2017-11-14 21:02] LABS: URINE BILIRUBIN - DIPSTICK NEGATIVE (NEGATIVE); URINE BLOOD DIPSTICK LARGE (NEGATIVE); URINE COLOR YELLOW; URINE GLUCOSE - DIPSTICK NEGATIVE (NEGATIVE); URINE KETONE NEGATIVE (NEGATIVE); URINE LEUK ESTERASE TRACE (NEGATIVE); URINE NITRITE - DIPSTICK NEGATIVE (Negative); URINE PROTEIN - DIPSTICK 30 mg/dL (NEG-TRACE); URINE UROBILINOGEN - DIPSTICK 0.2 E.U./dL (0.2)
[2017-11-14 21:08] LABS: HEMATOCRIT 35.2 % (39.0-50.0); HEMOGLOBIN 9.9 g/dl (14.0-18.0); IMMATURE GRANULOCYTES 0.8 % (0.0-1.0); MEAN CELL VOLUME 90.3 fL CALC (80.0-100.0); MEAN CORPUSCULAR HGB 25.4 pG CALC (26.0-32.0); MEAN CORPUSCULAR HGB CONC 28.1 g/L CALC (32.0-36.0); NEUT# 8.34 thou/uL (1.82-7.42); RED BLOOD COUNT 3.9 mill/uL (4.70-6.10); URINE CLARITY CLEAR
[2017-11-14 21:15] LABS: URINE YEAST FEW hpf
[2017-11-14 21:20] LABS: ALBUMIN 3.7 g/dL (3.2-5.0); ALKALINE PHOSPHATASE 107 u/l (38-126); ANION GAP 15 (6-22 (CALC)); BILIRUBIN, TOTAL 0.5 mg/dL (0.0-1.4); BUN 39 mg/dL (9-20); BUN/CREATININE RATIO 29 (12-20 (CALC)); CARBON DIOXIDE 33 mmol/l (22-30); CHLORIDE 100 mmol/l (95-108); CREATININE 1.3 mg/dL (0.7-1.3); GFR 57 ML/MIN (>=60 (CALC)); GFR FOR AFR.AMER. > 60 ML/MIN (>=60 (CALC)); POTASSIUM 4.3 mmol/l (3.5-5.1); SGOT/AST 47 u/l (17-59); SGPT/ALT 74 u/l (21-72); SODIUM 144 mmol/l (137-146); TOTAL PROTEIN 7.5 g/dL (6.3-8.2)
[2017-11-14 22:08] VITALS: BP 148/68
== END 2017-11-14 22:08 | disposition home or self-care (01) ==
LOC: ED 20:07
PROVIDERS: Emergency Medicine
DX: R53.1 Weakness (principal); I10 Essential (primary) hypertension; E11.9 Type 2 diabetes mellitus without complications; E66.9 Obesity, unspecified; Z99.81 Dependence on supplemental oxygen; Z96.0 Presence of urogenital implants

== ENCOUNTER 2017-11-15 05:43 | Emergency (ER) | payer MEDICARE ==
[~2017-11-15] VITALS: Ht 175.3 cm; Wt 150.0 kg
[2017-11-15 06:29] VITALS: BP 153/74
== END 2017-11-15 06:59 | disposition home or self-care (01) ==
LOC: ED 05:43
PROC: 0T9B70Z Drainage of Bladder with Drainage Device, Via Natural or Artificial Opening (ICD-10-PCS; principal; 2017-11-15)
DX: T83.028A Displacement of other urinary catheter, initial encounter (principal); I10 Essential (primary) hypertension; E11.9 Type 2 diabetes mellitus without complications; E66.9 Obesity, unspecified; Y84.6 Urinary catheterization as the cause of abnormal reaction of the patient, or of later complication, without mention of misadventure at the time of the procedure; Z99.81 Dependence on supplemental oxygen

== ENCOUNTER 2017-11-15 09:49 | Emergency (ER) | payer MEDICARE ==
[~2017-11-15] VITALS: Ht 175.3 cm; Wt 156.0 kg
[2017-11-15 10:26] LABS: HEMATOCRIT 34.4 % (39.0-50.0); HEMOGLOBIN 9.4 g/dl (14.0-18.0); IMMATURE GRANULOCYTES 1.1 % (0.0-1.0); MEAN CELL VOLUME 92.2 fL CALC (80.0-100.0); MEAN CORPUSCULAR HGB 25.2 pG CALC (26.0-32.0); MEAN CORPUSCULAR HGB CONC 27.3 g/L CALC (32.0-36.0); NEUT# 9.04 thou/uL (1.82-7.42); RED BLOOD COUNT 3.73 mill/uL (4.70-6.10); RED CELL DISTRI WIDTH 17.2 % (11.5-15.5)
[2017-11-15 10:50] LABS: ANION GAP 17 (6-22 (CALC)); BUN 33 mg/dL (9-20); BUN/CREATININE RATIO 24 (12-20 (CALC)); CARBON DIOXIDE 32 mmol/l (22-30); CHLORIDE 98 mmol/l (95-108); CREATININE 1.4 mg/dL (0.7-1.3); GFR 52 ML/MIN (>=60 (CALC)); GFR FOR AFR.AMER. > 60 ML/MIN (>=60 (CALC)); POTASSIUM 4.9 mmol/l (3.5-5.1); SODIUM 142 mmol/l (137-146)
[2017-11-15 13:33] VITALS: BP 130/67
== END 2017-11-15 13:35 | disposition short-term general hospital (02) ==
LOC: ED 09:49
PROVIDERS: Family Medicine
PROC: 0BH17EZ Insertion of Endotracheal Airway into Trachea, Via Natural or Artificial Opening (ICD-10-PCS; principal; 2017-11-15)
PROC: 02HV33Z Insertion of Infusion Device into Superior Vena Cava, Percutaneous Approach (ICD-10-PCS; 2017-11-15)
PROC: 0T9B70Z Drainage of Bladder with Drainage Device, Via Natural or Artificial Opening (ICD-10-PCS; 2017-11-15)
DX: J44.1 Chronic obstructive pulmonary disease with (acute) exacerbation (principal); J96.90 Respiratory failure, unspecified, unspecified whether with hypoxia or hypercapnia; I10 Essential (primary) hypertension; E11.9 Type 2 diabetes mellitus without complications; E66.9 Obesity, unspecified; Z99.81 Dependence on supplemental oxygen; Z96.0 Presence of urogenital implants; T83.028A Displacement of other urinary catheter, initial encounter; Y84.6 Urinary catheterization as the cause of abnormal reaction of the patient, or of later complication, without mention of misadventure at the time of the procedure; R07.9 Chest pain, unspecified; R06.02 Shortness of breath